=== PATIENT | male | born 1945 | race Caucasian/White ===

== ENCOUNTER 2023-11-15 06:18 | Day surgery (SDC) | payer OTHER ==
[2023-11-08 13:49] VITALS: BMI 22.8
[2023-11-15] MEDS ORDERED: ceFAZolin SODIUM 1 GM VIAL ONE ×2 (07:16→07:18)
[2023-11-15] MEDS ORDERED: MIDAZOLAM HCL 2 MG/2 ML SINGLE DOSE VIAL ONE ×3 (07:16→08:57)
[2023-11-15] MEDS ORDERED: ERYTHROMYCIN 0.5% OPHTHALMIC OINTMENT 3.5 GM TUBE ONE (07:18)
[2023-11-15] MEDS ORDERED: POVIDONE-IODINE 5% OPHTHALMIC PREP 30 ML SOLUTION ONE ×2 (07:19→09:16)
[2023-11-15] MEDS ORDERED: BUPIVACAINE HCL/PF 0.5% (5MG/ML) 10 ML VIAL ONE (07:19)
[2023-11-15] MEDS ORDERED: TETRACAINE 0.5% OPHTH SOLN 2 ML BOTTLE ONE (07:19)
[2023-11-15] MEDS ORDERED: LIDOCAINE 1%/EPI 1:100000 (20 ML MULTI DOSE VIAL) ONE (07:19)
[2023-11-15] MEDS ORDERED: LIDOCAINE HCL 1%, 10 MG/ML (20ML VIAL) ONE (08:06)
[2023-11-15] MEDS ORDERED: PROPOFOL 20 ML ONE ×3 (09:12→09:37)
[2023-11-15] MEDS: dilTIAZem HCL 60 MG TABLET PO ONE (10:30)
[2023-11-15] MEDS ORDERED: ONDANSETRON 4 MG/2 ML VIAL IVPUSH PRN (10:38)
[2023-11-15] MEDS ORDERED: LACTATED RINGERS SOLUTION 1,000 ML IV SCH (10:45)
[2023-11-15] MEDS ORDERED: FENTANYL CITRATE/PF 50 MCG/ML VIAL ONE (10:48)
[2023-11-15 11:31] VITALS: TEMP 97.5
[2023-11-15 12:18] VITALS: RESP 16
[2023-11-15 13:30] VITALS: BP 109/59; PULSE 51
== END 2023-11-15 13:15 | disposition home or self-care (01) ==
LOC: FASU 06:18
PROVIDERS: ATTEND Ophthalmology
PROC: 08QRXZZ Repair Left Lower Eyelid, External Approach (ICD-10-PCS; 2023-11-15)
PROC: 08QPXZZ Repair Left Upper Eyelid, External Approach (ICD-10-PCS; 2023-11-15)
PROC: 08SR0ZZ Reposition Left Lower Eyelid, Open Approach (ICD-10-PCS; principal; 2023-11-15 08:28)
DX: C44.1192 Basal cell carcinoma of skin of left lower eyelid, including canthus (principal); H02.89 Other specified disorders of eyelid
CPT/HCPCS: 93005; 93010; 94760